=== PATIENT | male | born 1955 ===

== ENCOUNTER 2020-06-28 12:59 | Emergency (ER) | payer MEDICARE, OTHER, SELFPAY ==
[2020-06-28 13:30] VITALS: BP 124/77; PULSE 76; RESP 20; TEMP 36.6; O2SAT 98
[2020-06-28] MEDS: LIDOCAINE HCL 1% LOCAL INJ 20 ML VIAL 5 ML INFILTRATE (14:18)
--- NOTE | 2020-06-28 15:05 | ED.UPPEXIN ---
HPI - Extremity Injury (Upper) General Chief Complaint: Extremity Injury, Upper Stated Complaint: swollen finger Time Seen by Provider: 06/28/20 13:40 Source: patient Mode of arrival: ambulatory Limitations: no limitations History of Present Illness HPI narrative: Patient comes in with what appears to be a Felon of the right 3rd finger on the lateral aspect. He has a small amount of pus coming from this. Finger appears to be quite tender to touch. Pain has been sharp, moderately severe, ongoing for the past several days, not improving. Nothing has helped at home. Other injuries: none Relieving factors: none Exacerbating factors: movement of extremity Related Data Home Medications Medication Instructions Recorded Confirmed esomeprazole magnesium 40 mg PO DAILY 06/28/20 06/28/20 [id number] 1 ea INHALATION DAILY 06/28/20 06/28/20 [Trelegy Ellipta] Allergies Allergy/AdvReac Type Severity Reaction Status Date / Time No Known Allergies Allergy Verified 06/13/19 08:18 Review of Systems Constitutional: Constitutional: Reports no additional constitutional complaints Eyes: Eyes: Reports no additional eye complaints ENT: Reports system reviewed and no additional complaints, except as documented Cardiovascular: Cardiovascular: Reports no additional cardiovascular complaints Respiratory: Respiratory: Reports no additional respiratory complaints Gastrointestinal: Gastrointestinal: Reports no additional gastrointestinal complaints Genitourinary: Genitourinary: Reports no additional male genitourinary complaints Musculoskeletal: Musculoskeletal: Reports no additional musculoskeletal complaints Integumentary/Breasts: Skin/Breast: Reports system reviewed and no additional complaints, except as docu Neurologic: Reports system reviewed and no additional complaints, except as documented Psychiatric: Psychiatric: Reports no additional psychiatric complaints Endocrine: Endocrine: Reports no additional endocrine complaints Hematologic/Lymphatic: Hematologic/Lymphatic: Reports no additional hematologic/lymphatic complaints Allergic/Immunologic: Allergic/Immunologic: Reports no additional allergic/immunologic complaints [facility] Past Medical History Medical History COPD (chronic obstructive pulmonary disease) GERD (gastroesophageal reflux disease) Surgical History Surgical History History of cholecystectomy Hx of appendectomy Family History Family History Father Atrial fibrillation Social History Social History (Updated 02/14/21 @ 19:42 by Emiliano Cazares MD) Smoking status: Former smoker Alcohol intake: current Alcohol use details: 2-3 beers a day, on evenings drinking alcohol Exam Const: General: no acute distress Orientation/consciousness: patient oriented x3 HENMT: Head: normal to inspection Face and sinus: normal facial exam Mouth: Yes Normal oral and palatal mucosa present Throat: posterior oropharynx normal Eyes: Conjunctivae: conjunctivae normal Neck: Neck: normal visual inspection and no lymphadenopathy Chest: Chest palpation & inspection: normal inspection of the chest Resp: Auscultation: clear to auscultation bilaterally Cardio: Rate: regular rate Rhythm: regular rhythm GI: GI Palp: Yes Soft to palpation (nontender) Extrem: Other: Felon right 3rd finger, with small amount pus draining. Psych: Appearance: grossly normal Mental Status: mental status grossly normal Course Course Emergency Course: I gave him a digital block with lidocaine 1%, with about 1.5 cc on each side of the digit. Then I removed 1/3 of the nail on the lateral aspect. I had attempted to drain the area, but removed the nail as I felt this was the only way to prevent the abscess from developing again, given the anatomy of the na
[2020-06-28] MEDS: cefTRIAXone 1 GM VIAL IM (15:23)
[2020-06-28 15:30] VITALS: PULSE 70; RESP 15; TEMP 36.6; O2SAT 98
--- NOTE | 2020-06-28 15:30 | PC.NURSE ---
PT REFUSED TO STAY 30 MINUTES POST IM INJECTION STATING I NEED TO GET HOME. EDUCATION PROVIDED.
== END 2020-06-28 15:28 | disposition home or self-care (01) ==
PROVIDERS: Emergency Provider Emergency Medicine; PCP Internal Medicine
DX: L03.011 Cellulitis of right finger (principal)
CPT/HCPCS: 96372; 99283; A9270; J0696

== ENCOUNTER 2020-07-14 08:02 | Outpatient (RCR) | payer MEDICARE, OTHER, SELFPAY ==
--- NOTE | 2020-07-14 09:33 | OTOPEVAL ---
Thank you for referring Brock Guerrero to [facility].? The patient is scheduled to be seen for therapy? ____x/week for ___ weeks. Please review, sign, date and return this plan of care CHELSIE. I agree with and certify that the following plan of care is medically necessary. Referring Physician Date Admitting Provider: Attending Provider: tejas foster Referring Provider: NAKITA Outpatient Evaluation Start: 07/14/20 08:08 Freq: Status: Active Protocol: Document 07/14/20 08:08 KT (Rec: 07/14/20 09:32 [id number] Therapy Assessment Status Assessment Status Assessment Status Evaluation Outpatient Past Medical History Respiratory History Hx Chronic Obstructive Pulmonary Disease Yes (COPD) Gastrointestinal History Hx Appendectomy Yes Hx Cholecystectomy Yes Hx Gastroesophageal Reflux Disease Yes HEENT History Hx Tonsillectomy Yes Evaluation Information Problem Diagnosis Decreased ROM and strength Onset 06/27/20 Cause finger infection Subjective Information Patient reports that his R Query Text:As Reported By Patient/ middle finger became infected Family and he spent 3 days in the hospital. Patient had an outpatient procedure to clean out the nail bed. Patient reports that it is painful to bend and straighten his middle finger. Patient does not have any finger splints or precautions at this time. Patient is retired. Patient goes to see infectious disease doctor this afternoon and then sees the ortho doctor on the . Quick DASH: 34.1% Prior Level of Function Activity Level (Last 3 Months) Hand Dominance Right Activity of Daily Living Ability Independent Indoor/Home Mobility Independent Community Mobility Independent Stairs Ability Independent Functional Cognition (Planning, Shopping Independent , Taking Medications) Cooking Yes Cleaning Yes Laundry Yes Shopping Yes Driving Yes Home Setting Home Type House Living Situation With Spouse Mobility Assistive Devices (Used Last 3 None Months) Pain Assessment Timing of Pain Ass
--- NOTE | 2020-07-29 14:11 | OTOPEVAL ---
Thank you for referring Brock Guerrero to [facility].? The patient is scheduled to be seen for therapy? ____x/week for ___ weeks. Please review, sign, date and return this plan of care CHELSIE. I agree with and certify that the following plan of care is medically necessary. Referring Physician Date Admitting Provider: Attending Provider: tejas foster Referring Provider: ButchOT Outpatient Evaluation Start: 07/14/20 08:08 Freq: Status: Active Protocol: Document 07/29/20 13:09 [facility] (Rec: 07/29/20 14:11 [id number]) Therapy Assessment Status Assessment Status Assessment Status Re-evaluation Outpatient Past Medical History Respiratory History Hx Chronic Obstructive Pulmonary Disease Yes (COPD) Gastrointestinal History Hx Appendectomy Yes Hx Cholecystectomy Yes Hx Gastroesophageal Reflux Disease Yes HEENT History Hx Tonsillectomy Yes Evaluation Information Problem Subjective Information Patient reports that things Query Text:As Reported By Patient/ seem to be going much better Family however his R middle finger continues to be stiff and a little sore with some movements. He feels that he is probably at 65%. Patient reports that he is able to use his R hand to perform all tasks that he needs to. Pain Assessment Timing of Pain Assessment Timing of Pain Assessment Re-assessment Self Report Self Report Pain Level 0 Pain Score Pain Score 0: Self Report Additional Pain Score Comments greatest pain: 1/10 lowest pain: 0/10 Upper Extremity Range of Motion Finger Range of Motion Right Middle Finger MCP Joint Flexion - Active 95 Middle Finger PIP Joint Flexion - Active 90 Middle Finger DIP Joint Flexion - Active 60 Middle Finger DIP Joint Extension - -5 Active Hand Paper Supervisor/Pinch Strength Assessment Hand Right Paper Supervisor Strength (lbs) 70 Sensation Assessment Location Right 2 Point Discrimination Comments mild numbness in R middle finger however reports improvements Extremity Circumference Assessment Circumference Assessment Circumference Comments R middle PIP: 7.5 cm R middle DIP: 7.0 cm General Exercise General Exercises Exercise Description PROM for R middle DIP Query Text:Record Sets, Reps, extension, R middle MCP/PIP/ Resistance, and Position DIP flexion x 10 min AROM for R middle blocking MCP , PIP, and DIP flexion x 10
--- NOTE | 2020-09-08 16:30 | PCOTNOTE ---
Patient is discharged from skilled OT services as of 07/29/20. See last treatment note for patient's skills. MS
== END 2020-07-29 13:28 | disposition home or self-care (01) ==
LOC: CHSOT 08:02
PROVIDERS: PCP Internal Medicine
DX: L08.9 Local infection of the skin and subcutaneous tissue, unspecified (principal)
CPT/HCPCS: 97110; 97140; 97165

== ENCOUNTER 2021-06-01 07:08 | Outpatient (CLI) | payer MEDICARE, SELFPAY ==
--- NOTE | ~2021-06-01 | US_ITS ---
EXAMINATION: US aorta [facility] scr[facility] DATE: 06/01/2021 07:45 INDICATION: Abdominal aortic aneurysm screening with high risk screen including smoking and obesity. TECHNIQUE: Grayscale, color Doppler, and pulsed Doppler images of the aorta and common iliac arteries were obtained. COMPARISON: None. FINDINGS: The proximal to mid aorta is obscured due to patient body habitus and scattered bowel gas. The distal aorta measures 2.3 cm. The right common iliac artery measures 1.4 cm. The left common iliac artery m easures 1.3 cm. IMPRESSION: 1. Normal caliber distal abdominal aorta. Nonvisualized proximal to mid abdominal aorta due to patien t body habitus and shadowing bowel gas. Reviewed, dictated and finalized at location A. MACY LABORATORY TECHNICIAN IMPRESSION: 1. Normal caliber distal abdominal aorta. Nonvisualized proximal to mid abdomin al aorta due to patient body habitus and shadowing bowel gas.
== END 2021-06-01 07:09 | disposition home or self-care (01) ==
LOC: CHSIMG 07:11
PROVIDERS: PCP Internal Medicine; Visit Provider Internal Medicine
DX: Z13.89 Encounter for screening for other disorder (principal); F17.210 Nicotine dependence, cigarettes, uncomplicated
CPT/HCPCS: 76706

== ENCOUNTER 2021-12-07 07:48 | Outpatient (CLI) | payer MEDICARE, SELFPAY ==
--- NOTE | ~2021-12-07 | US_ITS ---
EXAMINATION: US aorta DATE: 12/07/2021 08:31 INDICATION: Abdominal aortic aneurysm screening, history of obesity and prior tobacco use TECHNIQUE: Grayscale, color Doppler, and pulsed Doppler images of the aorta and common iliac arteries were obtained. COMPARISON: 06/01/2021 FINDINGS: Maximum vascular dimensions are as follows: Proximal aorta: 1.9 cm Mid aorta: 2.0 cm Distal aorta: 1.6 cm Right common iliac artery: 1.0 cm Left common iliac artery: 1.3 cm There is no evidence of abdominal aortic aneurysm. IMPRESSION: 1. No sonographic evidence of abdominal aortic aneurysm. Reviewed, dictated and finalized at location B.
== END 2021-12-07 07:49 | disposition home or self-care (01) ==
LOC: CHSIMG 07:50
PROVIDERS: PCP Internal Medicine; Visit Provider Internal Medicine
DX: I71.4 Abdominal aortic aneurysm, without rupture (principal)
CPT/HCPCS: 76775

== ENCOUNTER 2022-04-19 09:32 | Outpatient (CLI) | payer MEDICARE, SELFPAY ==
[2022-04-19 09:53] LABS: Add Urine Microscopic? NO; Appearance Urine Clear (Clear); Basophils Absolute Auto 0.07 K/mm3 (0.00-0.10); Basophils Percent Auto 0.9 % (0.0-1.0); Bilirubin Urine Negative (Negative); Blood Urine Negative (Negative); Color Urine Yellow (Yellow); Eosinophils Absolute Auto 0.34 K/mm3 (0.02-0.50); Eosinophils Percent Auto 4.6 % (1.0-6.0); Glucose Urine UA Negative (Negative); Hematocrit 41.3 % (37.0-46.0); Hemoglobin 13.3 g/dL (12.4-15.3); Immature Granulocyte Absolute 0.02 K/mm3 (0.00-0.00); Immature Granulocyte Percent A 0.3 % (0.0-0.0); Ketones Urine Negative (Negative); Leukocyte Esterase Ur Negative LEU/UL (Negative); Lymphocytes Absolute Auto 2.51 K/mm3 (1.10-4.50); Lymphocytes Percent Auto 33.9 % (18.0-42.0); Mean Corpuscular HGB Conc 32.2 g/dL (32.0-36.0); Mean Corpuscular Hemoglobin 27.9 pg (27.0-31.0); Mean Corpuscular Volume 86.8 fL (78.0-102.0); Mean Platelet Volume 9.9 fl (8.7-11.0); Monocytes Percent Auto 9.4 % (2.0-11.0); Neutrophils Absolute Auto 3.8 K/mm3 (1.7-7.2); Neutrophils Percent Auto 50.9 % (50.0-70.0); Nitrate Urine Negative (Negative); Platelet Count Result 235 K/mm3 (150-420); Protein Urine Negative (Negative); Red Blood Count 4.76 M/mm3 (4.70-6.10); Red Cell Distribution Width 14.2 % (11.6-14.4); Urobilinogen Urine 0.2 mg/dL (0.2-1.0); White Blood Count 7.4 K/mm3 (4.8-10.8)
[2022-04-19 10:45] LABS: Alanine Aminotransferase 22 U/L (16-63); Albumin Level 3.4 g/dL (3.4-5.0); Alkaline Phosphatase 59 U/L (46-116); Anion Gap 8 mmol/L (8-16); Aspartate Amino Transferase 19 U/L (15-37); Bilirubin,Total 0.4 mg/dL (0.00-1.00); Blood Urea Nitrogen 9 mg/dL (7-18); Calcium 8.6 mg/dL (8.5-10.1); Carbon Dioxide 27 mmol/L (21-32); Chloride 107 mmol/L (98-108); Cholesterol 156 mg/dL (0-200); Estimated Glomerular Filt Rate > 60; Glucose 108 mg/dL (70-99); HDL Direct 47 mg/dL (40-60); LDL Cholesterol Calculated 83 mg/dL (<130); Osmolality Calculated 293 mOsm/kg (285-295); Potassium 4.4 mmol/L (3.5-5.1); Prostate Specific Antigen 1.3 ng/mL (< OR = 4.0); Sodium 142 mmol/L (136-145); Triglycerides 131 mg/dL (0-150)
[2022-04-19 15:29] LABS: Hemoglobin A1C 5.3 % (<5.7)
== END 2022-04-19 09:33 | disposition home or self-care (01) ==
LOC: CHSLAB 09:35
PROVIDERS: PCP Internal Medicine; Visit Provider Internal Medicine
DX: E78.2 Mixed hyperlipidemia (principal); N39.0 Urinary tract infection, site not specified; Z12.5 Encounter for screening for malignant neoplasm of prostate; Z00.00 Encounter for general adult medical examination without abnormal findings; R73.01 Impaired fasting glucose
CPT/HCPCS: 36415; 80053; 80061; 81003; 83036; 84153; 85025; G0103

== ENCOUNTER 2022-08-10 17:39 | Outpatient (CLI) | payer MEDICARE, SELFPAY ==
--- NOTE | ~2022-08-10 | XR_ITS ---
EXAMINATION: XR knee RT 3V DATE: 08/10/2022 18:53 INDICATION: Right posterior knee pain TECHNIQUE: Three views of the right knee were obtained. COMPARISON: 04/03/2013 FINDINGS: Alignment is normal. No fracture or osteochondral lesion. There is mild to moderate tricomp artmental osteoarthritis of the knee. No joint effusion/synovitis. Soft tissues are unremarkable. IMPRESSION: 1. Mild to moderate tricompartmental osteoarthritis of the knee. Reviewed, dictated and finalized at location F.
== END 2022-08-10 17:40 | disposition home or self-care (01) ==
PROVIDERS: PCP Internal Medicine; Visit Provider Internal Medicine
DX: M25.561 Pain in right knee (principal); M17.11 Unilateral primary osteoarthritis, right knee
CPT/HCPCS: 73562

== ENCOUNTER 2022-08-20 06:45 | Outpatient (CLI) | payer MEDICARE, SELFPAY ==
--- NOTE | ~2022-08-20 | MR_ITS ---
EXAMINATION: MR knee RT wo con DATE: 08/20/2022 07:57 INDICATION: Right knee pain x10 days. No known injury. TECHNIQUE: Magnetic resonance imaging (MRI) of the right knee knee was performed without intravenous contrast. Sequences included axial PD-weighted FS FSE, coronal PD-weighted FSE and PD-weighted FS FSE , sagittal PD-weighted FSE, and sagittal T2-weighted FS FSE. COMPARISON: X-ray right knee 08/10/2022. FINDINGS: Medial compartment: Significantly decreased meniscal volume. Oblique undersurface tear at the meniscal body. Apical tears of the posterior horn. Moderate diffuse cartilage thinning. Mild osteophytosis. Lateral compartment: Bucket-handle type tear of the lateral meniscus with displacement of the flap into the intercondylar notch. Moderate diffuse cartilage thinning. Mild osteophytosis. Patellofemoral compartment: 8 mm full-thickness cartilage defect along the lateral facet. Diffuse moderate cartilage thinning. Re tinacula intact. Ligaments and tendons: Complete ACL tear. Intact MCL, PCL, and LCL. The remaining flexor and extensor tendons are intact. Fluid: Small volume joint fluid. Osseous/other: No suspicious focal marrow signal IMPRESSION: 1. Apical posterior horn and oblique undersurface tears of the body of the medial meniscus, with pres umed changes of partial meniscectomy. 2. Bucket-handle tear of the lateral meniscus. 3. Complete ACL tear. 4. Moderate tricompartmental osteoarthritic change. Reviewed, dictated and finalized at location K. IMPRESSION: 1. Apical posterior horn and oblique undersurface tears of the body of the medi al meniscus, with presumed changes of partial meniscectomy. 2. Bucket-handle tear of the lateral meniscus. 3. Complete ACL tear. 4. Moderate tricompartmental osteoarthritic change.
== END 2022-08-20 06:46 | disposition home or self-care (01) ==
LOC: CHSIMG 06:46
PROVIDERS: PCP Internal Medicine; Visit Provider Internal Medicine
DX: M25.561 Pain in right knee (principal); S83.241A Other tear of medial meniscus, current injury, right knee, initial encounter; S83.251A Bucket-handle tear of lateral meniscus, current injury, right knee, initial encounter; S83.501A Sprain of unspecified cruciate ligament of right knee, initial encounter; M17.11 Unilateral primary osteoarthritis, right knee
CPT/HCPCS: 73721

== ENCOUNTER 2023-05-15 10:05 | Outpatient (CLI) | payer MEDICARE, SELFPAY ==
[2023-05-15 10:22] LABS: Appearance Urine Clear (Clear); Bilirubin Urine Negative (Negative); Blood Urine Negative (Negative); Color Urine Light Yellow (Yellow); Glucose Urine UA Negative (Negative); Ketones Urine Negative (Negative); Leukocyte Esterase Ur Negative LEU/UL (Negative); Nitrate Urine Negative (Negative); Protein Urine Negative (Negative); Specific Grav Ur 1.015 (1.010-1.020); Urobilinogen Urine 0.2 mg/dL (0.2-1.0)
[2023-05-15 10:23] LABS: Basophils Absolute Auto 0.07 K/mm3 (0.00-0.10); Basophils Percent Auto 0.9 % (0.0-1.0); Eosinophils Percent Auto 5.3 % (1.0-6.0); Hematocrit 37.7 % (37.0-46.0); Hemoglobin 11.8 g/dL (12.4-15.3); Immature Granulocyte Absolute 0.04 K/mm3 (0.00-0.00); Immature Granulocyte Percent A 0.5 % (0.0-0.0); Lymphocytes Absolute Auto 2.43 K/mm3 (1.10-4.50); Lymphocytes Percent Auto 32.1 % (18.0-42.0); Mean Corpuscular HGB Conc 31.3 g/dL (32.0-36.0); Mean Corpuscular Hemoglobin 26.5 pg (27.0-31.0); Mean Corpuscular Volume 84.7 fL (78.0-102.0); Mean Platelet Volume 9.9 fl (8.7-11.0); Monocytes Absolute Auto 0.78 K/mm3 (0.10-0.90); Monocytes Percent Auto 10.3 % (2.0-11.0); Neutrophils Absolute Auto 3.9 K/mm3 (1.7-7.2); Neutrophils Percent Auto 50.9 % (50.0-70.0); Platelet Count Result 251 K/mm3 (150-420); Red Blood Count 4.45 M/mm3 (4.70-6.10); Red Cell Distribution Width 15.4 % (11.6-14.4); White Blood Count 7.6 K/mm3 (4.8-10.8)
[2023-05-15 10:25] LABS: Add Urine Microscopic? NO
[2023-05-15 11:25] LABS: Alanine Aminotransferase 26 U/L (16-63); Albumin Level 3.3 g/dL (3.4-5.0); Alkaline Phosphatase 47 U/L (46-116); Anion Gap 4 mmol/L (8-16); Aspartate Amino Transferase 15 U/L (15-37); Bilirubin,Total 0.3 mg/dL (0.00-1.00); Blood Urea Nitrogen 11 mg/dL (7-18); Calcium 8.8 mg/dL (8.5-10.1); Carbon Dioxide 33 mmol/L (21-32); Chloride 105 mmol/L (98-108); Cholesterol 153 mg/dL (0-200); Estimated Glomerular Filt Rate > 60; Glucose 98 mg/dL (70-99); HDL Direct 49 mg/dL (40-60); LDL Cholesterol Calculated 76 mg/dL (<130); Osmolality Calculated 293 mOsm/kg (285-295); Potassium 4.3 mmol/L (3.5-5.1); Prostate Specific Antigen 0.5 ng/mL (< OR = 4.0); Sodium 142 mmol/L (136-145); Total Protein 6.7 g/dL (6.4-8.2); Triglycerides 142 mg/dL (0-150)
== END 2023-05-15 10:06 | disposition home or self-care (01) ==
LOC: CHSLAB 10:08
PROVIDERS: PCP Internal Medicine; Visit Provider Internal Medicine
DX: Z12.5 Encounter for screening for malignant neoplasm of prostate (principal); N39.0 Urinary tract infection, site not specified; E78.2 Mixed hyperlipidemia
CPT/HCPCS: 36415; 80053; 80061; 81003; 84153; 85025; G0103

== ENCOUNTER 2023-05-23 12:00 | Outpatient (CLI) | payer MEDICARE, SELFPAY ==
--- NOTE | ~2023-05-23 | XR_ITS ---
EXAMINATION: XR chest 2V DATE: 05/23/2023 12:14 INDICATION: Cough and fever. TECHNIQUE: Frontal and lateral views of the chest were obtained. COMPARISON: Chest 2 views 01/28/2018 FINDINGS: There is no pneumonia, pleural effusion, or pneumothorax. The heart size is normal. There i s mild chronic anterior wedging of multiple thoracic vertebral bodies. There are surgical clips in th e abdomen. IMPRESSION: 1. No acute cardiopulmonary disease. Reviewed, dictated and finalized at location A. GE MANAGEMENT DIRECTOR
== END 2023-05-23 12:01 | disposition home or self-care (01) ==
LOC: CHSIMG 12:02
PROVIDERS: PCP Internal Medicine; Visit Provider Internal Medicine
DX: R05.9 Cough, unspecified (principal); J44.9 Chronic obstructive pulmonary disease, unspecified
CPT/HCPCS: 71046

== ENCOUNTER 2024-05-21 15:33 | Outpatient (CLI) | payer MEDICARE, SELFPAY ==
--- NOTE | ~2024-05-21 | XR_ITS ---
EXAMINATION: XR chest 2V 05/21/2024 15:53 INDICATION: COPD exacerbation PROCEDURE: 2 view chest COMPARISON: 05/23/2023 FINDINGS: The lungs are clear. The lungs are hyperinflated which is consistent with, but not diagnost ic of chronic obstructive pulmonary disease. The cardiomediastinal silhouette is within normal limits . There are no pleural effusions. There is no pneumothorax suspected. IMPRESSION: 1: NO ACUTE CARDIOPULMONARY DISEASE. Reviewed, dictated and finalized at location B. ICAPPED TEACHER
== END 2024-05-21 15:34 | disposition home or self-care (01) ==
LOC: CHSIMG 15:35
PROVIDERS: PCP Internal Medicine; Visit Provider Internal Medicine
DX: J44.1 Chronic obstructive pulmonary disease with (acute) exacerbation (principal)
CPT/HCPCS: 71046

== ENCOUNTER 2024-05-28 07:04 | Outpatient (CLI) | payer MEDICARE, SELFPAY ==
[2024-05-28 07:20] LABS: Add Urine Microscopic? NO; Appearance Urine Clear (Clear); Basophils Absolute Auto 0.07 K/mm3 (0.00-0.10); Basophils Percent Auto 0.5 % (0.0-1.0); Bilirubin Urine Negative (Negative); Blood Urine Negative (Negative); Color Urine Light Yellow (Yellow); Eosinophils Absolute Auto 0.12 K/mm3 (0.02-0.50); Eosinophils Percent Auto 0.9 % (1.0-6.0); Glucose Urine UA Negative (Negative); Hematocrit 40.3 % (37.0-46.0); Hemoglobin 12.6 g/dL (12.4-15.3); Immature Granulocyte Absolute 0.05 K/mm3 (0.00-0.00); Immature Granulocyte Percent A 0.4 % (0.0-0.0); Ketones Urine Negative (Negative); Leukocyte Esterase Ur Negative LEU/UL (Negative); Lymphocytes Absolute Auto 4.85 K/mm3 (1.10-4.50); Lymphocytes Percent Auto 36.7 % (18.0-42.0); Mean Corpuscular HGB Conc 31.3 g/dL (32-36); Mean Corpuscular Hemoglobin 26.2 pg (27.0-31.0); Mean Corpuscular Volume 83.8 fL (78.0-102.0); Mean Platelet Volume 10.1 fl (8.7-11.0); Monocytes Absolute Auto 1.24 K/mm3 (0.10-0.90); Monocytes Percent Auto 9.4 % (2.0-11.0); Neutrophils Absolute Auto 6.88 K/mm3 (1.70-7.20); Neutrophils Percent Auto 52.1 % (50.0-70.0); Nitrate Urine Negative (Negative); Platelet Count Result 244 K/mm3 (150-420); Protein Urine Negative (Negative); Red Blood Count 4.81 M/mm3 (4.70-6.10); Red Cell Distribution Width 14.9 % (11.6-14.4); Specific Grav Ur >= 1.030 (1.010-1.020); Urobilinogen Urine 0.2 mg/dL (0.2-1.0); White Blood Count 13.2 K/mm3 (4.8-10.8)
[2024-05-28 08:18] LABS: Alanine Aminotransferase 33 U/L (16-63); Alkaline Phosphatase 48 U/L (46-116); Anion Gap 9 mmol/L (4-12); Aspartate Amino Transferase 13 U/L (15-37); Bilirubin,Total 0.3 mg/dL (0.00-1.00); Blood Urea Nitrogen 14 mg/dL (7-18); Calcium 8.3 mg/dL (8.5-10.1); Carbon Dioxide 27 mmol/L (21-32); Chloride 106 mmol/L (98-108); Cholesterol 124 mg/dL (0-200); Estimated Glomerular Filt Rate > 60; Glucose 82 mg/dL (70-99); HDL Direct 59 mg/dL (40-60); LDL Cholesterol Calculated 30 mg/dL (<130); Osmolality Calculated 293 mOsm/kg (285-295); Potassium 4.1 mmol/L (3.5-5.1); Prostate Specific Antigen 0.6 ng/mL (< OR = 4.0); Sodium 142 mmol/L (136-145); Total Protein 6.1 g/dL (6.4-8.2); Triglycerides 174 mg/dL (0-150)
== END 2024-05-28 07:05 | disposition home or self-care (01) ==
LOC: CHSLAB 07:06
PROVIDERS: PCP Internal Medicine; Visit Provider Internal Medicine
DX: E78.2 Mixed hyperlipidemia (principal); J44.1 Chronic obstructive pulmonary disease with (acute) exacerbation; Z12.5 Encounter for screening for malignant neoplasm of prostate; N39.0 Urinary tract infection, site not specified
CPT/HCPCS: 36415; 80053; 80061; 81003; 84153; 85025; G0103

== ENCOUNTER 2024-06-13 14:12 | Outpatient (CLI) | payer MEDICARE, SELFPAY ==
--- NOTE | ~2024-06-13 | XR_ITS ---
CHEST RADIOGRAPH, PA AND LATERAL CLINICAL HISTORY: SOB,COUGH,X5DAYS,COPD . COMPARISON: 05/21/2024 TECHNIQUE: PA and lateral views of the chest. FINDINGS The cardiomediastinal silhouette is unremarkable. The lungs are clear. Visualized osseous structures and soft tissues are unremarkable. IMPRESSION: No focal infiltrate or effusion. If clinical suspicion persists, cross-sectional imaging (noncontrast enhanced CT examination of the c hest) is recommended for further evaluation. Reviewed, dictated and finalized at location A. OLEUM INSPECTOR SUPERVISOR IMPRESSION: No focal infiltrate or effusion. If clinical suspicion persists, cross-sectional imaging (noncontrast enhanced C T examination of the chest) is recommended for further evaluation.
[2024-06-13 14:32] LABS: Hematocrit 44.5 % (37.0-46.0); Hemoglobin 13.6 g/dL (12.4-15.3); Mean Corpuscular HGB Conc 30.6 g/dL (32-36); Mean Corpuscular Hemoglobin 26.1 pg (27.0-31.0); Mean Corpuscular Volume 85.2 fL (78.0-102.0); Mean Platelet Volume 10.6 fl (8.7-11.0); Platelet Count Result 195 K/mm3 (150-420); Red Blood Count 5.22 M/mm3 (4.70-6.10); Red Cell Distribution Width 15.8 % (11.6-14.4); White Blood Count 6.5 K/mm3 (4.8-10.8)
--- OUTSIDE RECORDS SUMMARY | 2024-06-13 14:51 | XMS_ITS | Continuity of Care Document ---
Author Organization [facility] Address [id number] [place] [address] [place] [address] Phone Care Team Providers Care Aboriginal Education Worker Coordinator Name Role Phone Preston Hunt DO Unavailable Unavailable Advance Directives Directive Yes / No Effective Date File Name No Information Encounters Encounter Description Practice Location Reason(s) For Visit Diagnoses Date Provider Providers Copied on Encounter [facility], [address], [place], [place], [id number], tel:[phone] [facility] No Information Gilbert Jaramillo. [address] [place], [address], [place]. tel: [phone] Family History Family Member Type Diagnosis Age At Onset No Information Payers Payer name Insurance type Covered democrat ID Authoriza tion(s) No Information Social History Type Description Quantity Date Captured Comments Sex Male Smoking Status No Information Chief Complaint And Reason For Visit No Information Reason For Referral Reason For Referral No Information History Of Present Illness Encounter Date Complaint History Of Prese nt Illness No Information Functional Status Date Functional Assessmen t No Information Instructions Date Instruction Additional Infor mation No Information Assessments Type Assessment Date No Information Patient Care Teams Name Effective Dates (start - stop) Status Members No Information
--- OUTSIDE RECORDS SUMMARY | 2024-06-13 14:51 | XMS_ITS | Clinical Summary ---
Author Organization [facility] Address [address] [place] [address]. [place], [place] [address] [place] [address] Care Team Providers Care Methods Analyst Name Role Phone Cydney Keating MD Primary Care Provider [phone] Social History Tobacco Use Types Packs/Day Years Used Date Smoking Tobacco: Never Assessed Sex and Gender Information Value Date Recorded Sex Assigned at Not on file Legal Sex Male 8:59 PM CDT Gender Identity Not on file Sexual Orientation Not on file Last Filed Vital Signs Vital Sign Reading Time Taken Comments Blood Pressure 118/64 01/19/2016 10:20 AM CDT Pulse 52 01/19/2016 10:20 AM CDT Temperature - - Respiratory Rate - - Oxygen Saturation - - Inhaled Oxygen Concentration - - Weight 118.8 kg (262 lb) 01/19/2016 10:20 AM CDT Height 177.8 cm (5' 10 ) 01/19/2016 10:20 AM CDT Body Mass Index 37.59 01/19/2016 10:20 AM CDT Plan of Treatment Health Maintenance Due Date Last Done Comments Colorectal Cancer Screening Colonoscopy (10 Years) 1954 Hepatitis C 1972 Zoster Vaccines (1 of 2) 2004 RSV Immunization or 60+ Years (1 - Risk 60-74 years 1-dose series) 2014 Annual Medicare Wellness Visit 2019 DTaP, Tdap and Td Vaccines (2 - Td or Tdap) 03/27/2020 03/27/2010 COVID-19 Vaccine ( - season) 2024 05/11/2021, 08/28/2020, 07/31/2020 Influenza Adult (#1) 2024 02/28/2019, 04/17/2018, 03/31/2017, Additional history exists Pneumococcal Vaccine: 65+ Years Completed 05/25/2021, 07/15/2019, 1955 Meningococcal B Vaccine Aged Out No l onger eligible based on patient's age to complete this topic Meningococcal Vaccine Aged Out No kathy alex eligible based on patient's age to complete this topic RSV Immunizations Under 20 Months Aged Out No longer eligible based on patient's age to complete this topic Insurance [employer] Care Teams Methods Analyst Relationship Specialty Start Date End Date Cydney Keating MD [address] [place] [id number] PCP - General INTERNAL MEDICINE 09/16/21
--- OUTSIDE RECORDS SUMMARY | 2024-06-13 14:51 | XMS_ITS | Patient Health Summary ---
Author Organization [facility] Address [address] [place] [address] Care Team Providers Care Oxygen Tank Filler Name Role Phone Cydney Keating MD Primary Care Provider [phone] Note from [facility],non-owned Affiliates and Associated Physician Practices is amultiple site organization consisting of ambulatory clinics and hospital sitesin [place], [place], [place] and [place]. This disclosure is being madepursuant to the Care Everywhere program and may not contain all information available regarding this patient. Last updated 18.[facility] Allergies No known active allergies Medications * Be aware that medications may not be up to date on this document. Alwaysverify current medications with the patient. * esomeprazole (NexIUM) 40 MG capsule(Started 06/17/2022) * triamcinolone acetonide (Kenalog) 0.1 % cream(Started 06/17/2022) * fluticasone-vilanterol (Breo Ellipta) 100-25 MCG/ACT inhaler Inhale 1 (one) puff by mouth once daily * methylPREDNISolone (Medrol Dosepak) 4 MG tablet(Started 08/10/2022) * meloxicam (Mobic) 15 MG tablet(Started 10/20/2022) Take 1 (one) tablet by mouth once daily 5 refills by 10/20/2023 Active Problems No known active problems Social History Tobacco Use Types Packs/Day Years Used Date Smoking Tobacco: Never Smokeless Tobacco: Never Tobacco Cessation:Counseling Given: Not Answered Sex and Gender Information Value Date Recorded Sex Assigned at Not on file Gender Identity Not on file Sexual Orientation Not on file Last Filed Vital Signs Vital Sign Reading Time Taken Comments Blood Pressure - - Pulse - - Temperature - - Respiratory Rate - - Oxygen Saturation - - Inhaled Oxygen Concentration - - Weight 104.3 kg (230 lb) 10/20/2022 2:37 PM CDT Height 177.8 cm (5' 10 ) 10/20/2022 2:37 PM CDT Body Mass Index 33 10/20/2022 2:37 PM CDT Procedures * XR KNEE BILAT 2VW OR LESS(Performed 10/20/2022) Performed for Chronic pain of right knee Results * XR KNEE BILAT ONE OR TWO VIEWS (10/20/2022 3:06 PM CDT) Anatomical Region Laterality Modality Lower Extremity Computed Radiogr aphy Narrative 10/20/2022 3:07 PM CDT Tonya Marcus, RT(R) ? 11/04/2022 ??2:00 PM See progress notes for results Lui Crump MD [facility] Care Teams Oxygen Tank Filler Relationship Specialty Start Date End Date Cydney Keating MD [address] [place] [address] PCP - General Internal Medicine 10/19/22
--- OUTSIDE RECORDS SUMMARY | 2024-06-13 14:51 | XMS_ITS | Clinical Summary ---
Author Organization [facility] [employer] Address [address] [place] [address] Care Team Providers Care Lacquer Spray Booth Operator Name Role Phone Cydney Keating MD Primary Care Provider [phone] Source Comments [facility] [employer],non-owned Affiliates and Associated Physician Practices is amultiple site organization consisting of ambulatory clinics and hospital sitesin [place], [place], [place] and [place]. This disclosure is being madepursuant to the Care Everywhere program and may not contain all information available regarding this patient. Last updated 18.[facility] [employer] Allergies No known active allergies Medications * Be aware that medications may not be up to date on this document. Alwaysverify current medications with the patient. Medication Sig Dispensed Refills Start Date End Date Status esomeprazole (NexIUM) 40 MG capsule 06/17/2022 Active triamcinolone acetonide (Kenalog) 0.1 % cream 06/17/2022 Active fluticasone-vilantero l (Breo Ellipta) 100-25 MCG/ACT inhaler Inhale 1 (one) puff by mouth once daily Active methylPREDNISolone (Medrol Dosepak) 4 MG tablet 08/10/2022 Active meloxicam (Mobic) 15 MG tablet Take 1 (one) tablet by mouth once daily 30 tablet 5 10/20/2022 Active Active Problems No known active problems Social [...] Mass Index 33 10/20/2022 2:37 PM CDT Plan of Treatment Health Maintenance Due Date Last Done Comments COLOGUARD (AGES 45-75) - COL ON CA SCREENING 1954 COLON MONITORING 1954 COLONOSCOPY - COLON CA SCREENING 1954 CT COLONOGRAPHY - COLON CA SCREENING 1954 Colorectal Cancer Screening 1954 FIT - COLON CA SCREENING 1954 FLEX SIG - COLON CA SCREENING 1954 LIPID TESTING 1954 HEPATITIS C SCREENING 05/29/1972 DTAP/TDAP/TD VACCINES (1 - Tdap) 1973 PNEUMOCOCCAL VACCINE 50+ (1 of 1 - PCV) 2004 ZOSTER VACCINE (1 of 2) 2004 SCREENING FOR DIABETES 10/20/2022 COVID-19 VACCINE (1 - 2023-2 5 season) 2024 INFLUENZA VACCINE (#1) 2024 03/27/2010 DEPRESSION SCREENING 05/15/2024 MEDICARE AWV ? CALENDAR YEAR 2024 Respiratory Syncytial Virus (RSV) Vaccine Pt: or over 60 yrs (1 - 1-dose 75+ series) 2029 HEPATITIS B VACCINE Aged Out No longe r eligible based on patient's age to complete this topic HIB VACCINE Aged Out No longer eligi ble based on patient's age to complete this topic HPV VACCINE Aged Out No longer eligi ble based on patient's age to complete this topic MENINGOCOCCAL (Group B) VACCINE Aged Out No longer eligible based on patient's age to complete this topic MENINGOCOCCAL VACCINE Aged Out No kathy alex eligible based on patient's age to complete this topic Care Teams Lacquer Spray Booth Operator Relationship Specialty Start Date End Date Cydney Keating MD [address] [place] [phone] PCP - General Internal Medicine 10/19/22
--- OUTSIDE RECORDS SUMMARY | 2024-06-13 14:52 | XMS_ITS | Referral Summary ---
Author Organization [facility] [employer] Address [address] [place] [address] Care Team Providers Care Farm Service Consultant Name Role Phone Cydney Keating MD Primary Care Provider [phone] Source Comments [facility] [employer],non-owned Affiliates and Associated Physician Practices is amultiple site organization consisting of ambulatory clinics and hospital sitesin [place], [place], [place] and [place]. This disclosure is being madepursuant to the Care Everywhere program and may not contain all information available regarding this patient. Last updated 18.[facility] [employer] Allergies No known active allergies Medications [...] 10/20/2022 2:37 PM CDT Plan of Treatment Not on file Care Teams Farm Service Consultant Relationship Specialty Start Date End Date Cydney Keating MD [address] [place] [phone] PCP - General Internal Medicine 10/19/22
--- OUTSIDE RECORDS SUMMARY | 2024-06-13 14:52 | XMS_ITS | Referral Summary ---
Author Organization [facility] Address [address] [place] [address] Care Team Providers Care Oil Changer Name Role Phone Cydney Keating MD Primary Care Provider + [phone] Allergies No known active allergies Medications omeprazole (PriLOSEC) 40 mg capsule Take 1 capsule (40 mg total) by mouth daily Active ipratropium-albute roL (COMBIVENT RESPIMAT) 20-100 mcg/actuation inhalerIndications :Chronic Obstructive Pulmonary Disease with Bronchospasms Inhale 1 puff as needed for wheezing Active fluticasone/umecli din/vilanter (TRELEGY ELLIPTA INHAL) Inhale Active multivit-min/romero us fumarate (MULTI VITAMIN ORAL) Take by mouth Ac tive cyanocobalamin (Vitamin B-12) 1,000 mcg sublingual tablet Take 1 tablet (1,000 mcg total) by mouth daily Active ascorbic acid (vitamin C) 100 mg tablet Take 1 tablet (100 mg total) by mouth daily Active Active Problems Problem Noted Date Diagnosed Date Encounter for screening colonoscopy 07/06/2021 Overview (07/06/2021): Added automatically from request for surgery [id number] Abnormal glucose tolerance test (GTT) 09/28/2013 Overview (08/19/2016): IMPAIRED ORAL GLUCSE CONNOR Dysphagia 09/28/2013 Overview (08/19/2016): DYSPHAGIA NOS Chronic obstructive pulmonary disease 09/28/2013 Overview (08/19/2016): CHR AIRWAY OBSTRUCT NEC Gastroesophageal reflux disease with esophagitis 09/28/2013 Overview (08/19/2016): REFLUX ESOPHAGITIS Immunizations Name Administration Dates Next Due Influenza, Split 03/27/2010 Tdap 03/27/2010 Social History Tobacco Use Types Packs/Day Years Used Date Smoking Tobacco: Former Cigarettes Q uit: 2004 Tobacco Cessation:Counseling Given: Not Answered Alcohol Use Standard Drinks/Week Comments Yes 0 (1 standard drink = 0.6 oz pur e alcohol) AUDIT-C Answer Date Recorded Q1: How often do you have a drink containing alc ohol? 2-4 times a month 04/14/2023 Q2: How many drinks containi ng alcohol do you have on a typical day when you are drinking? 1 or 2 04/14/2023 Q3: How often do you have si x or more drinks on one occasion? Never 04/14/2023 Personal Safety Answer Date Recorded Have you ever been in or are you currently in a harmful physical or emotional relationship or is someone making you feel afraid or unsafe? Denies 04/14/2023 Sex and Gender Information Value Date Recorded Sex Assigned at Not on file Legal Sex Male 12:44 PM PLASTERER MAINTENANCE Gender Identity Not on file Sexual Orientation Not on file Last Filed Vital Signs Vital Sign Reading Time Taken Comments Blood Pressure 120/75 04/14/2023 9:17 AM PLASTERER MAINTENANCE Pulse 53 04/14/2023 9:17 AM PLASTERER MAINTENANCE Temperature 35.8 ??C (96.5 ??F) 04/14/2023 8:57 AM CS T Respiratory Rate 19 04/14/2023 9:17 AM PLASTERER MAINTENANCE Oxygen Saturation 98% 04/14/2023 9:17 AM PLASTERER MAINTENANCE Inhaled Oxygen Concentration - - Weight 106.6 kg (235 lb) 04/14/2023 7:55 AM PLASTERER MAINTENANCE Height 177.8 cm (5' 10 ) 04/14/2023 7:55 AM PLASTERER MAINTENANCE Body Mass Index 33.72 04/14/2023 7:55 AM PLASTERER MAINTENANCE Plan of Treatment Not on file Procedures Procedure Name Priority Date/Time Associated Diagnosis Comments COLONOSCOPY 08/04/2021 9:22 AM CDT from Last 3 Months or Most Recently Relevant to Health Maintenance Results * COLONOSCOPY (08/04/2021 9:22 AM CDT) Anatomical Region Laterality Modality Other Narrative Procedure Note Stephanie Xiong MD - 08/04/2021 9:22 AM CDT [facility] Patient Name: Brock Guerrero Procedure Date: 08/04/2021 9:22 AM Date of : 1955 Admit Type: Outpatient Age: 66 Gender: Male Attending MD: Stephanie Xiong M.D. Room: [facility] RO[facility] 1 Note Status: Finalized Patient Profile: This is a 66 year old male. No family history ofcolon cancer. No specific GI complaint Procedure: Colonoscopy Indications: Screening for colorectal malignant neoplasm, Last colonoscopy: 2011 Referring MD: Cydney Keating MD Providers: Stephanie Xiong M.D. Impression: - One 16 mm polyp in the cecum, removed with a hot snare. Resected and retrieved. Clip (MRconditional) was placed. Clip stave planer tender: ExoYou. - One 5 mm polyp in the rectum, removed with a cold snare. Resected and retrieved. - Internal hemorrhoids. Recommendation: - Repeat colonoscopy in 3 - 5 years for screening purposes. - Await pathology results. - Continue present medications. Medicines: Monitored Anesthesia Care Complications: No immediate complications. Estimated Blood Loss: Estimated blood loss: none. Procedure: Pre-Anesthesia Assessment: - Prior to the procedure, a History and Physicalwas performed, and patient medications and allergieswere reviewed. The patient's tolerance of previous anesthesia was also reviewed. The risks andbenefits of the procedure and the sedation options and risks were discussed with the patient. All questions were answered, and informed consent was obtained. Prior Anticoagulants: The patient has taken noanticoagulant or antiplatelet agents. ASA Grade Assessment: II -A patient with mild systemic disease. After reviewing the risks and benefits, the patient was deemed in satisfactory condition to undergo the procedure. The benefits, risks and alternatives of theprocedure and sedation were discussed and informed consentwas obtained. All questions were answered. Please referto the signed informed consent document in the medical record. The bowel preparation used was Miralax and bisacodyl tablets via split dose instruction. The scope was passed under direct vision. The Pediatric Colonoscope PCF-H190L [id number] was introducedthrough the anus and advanced to the the cecum, identifiedby appendiceal orifice and ileocecal valve. Thequality of the bowel preparation was good. Bowel prep was administered using a split dose. Findings: The perianal and digital rectal examinations were normal. The appendiceal orifice appeared normal. A 16 mm polyp was found in the cecum. The polyp was sessile. Thepolyp was removed with a hot snare. Resection and retrieval were complete.To prevent bleeding after the polypectomy, one hemostatic clip was successfully placed (MR conditional). Clip stave planer tender: ExoYou. There was no bleeding at the end of the procedure. The sigmoid colon, descending colon, transverse colon and ascending colon appeared normal. A 5 mm polyp was found in the rectum. The polyp was sessile. Thepolyp was removed with a cold snare. Resection and retrieval werecomplete. Internal hemorrhoids were found during retroflexion. The hemorrhoids were small. Electronically signed by Ahmad Karadaghy, M.D. Stephanie Xiong M.D. 08/04/2021 11:09:25 AM Number of Addenda: 0 Note Initiated On: 08/04/2021 9:22 AM Procedure Code(s): --- Professional --- 60569, Colonoscopy, flexible; with removal of tumor(s), polyp(s), or other lesion(s) by snare technique Diagnosis Code(s): --- Professional --- Z12.11, Encounter for screening for malignant neoplasm of colon K64.8, Other hemorrhoids D12.0, Benign neoplasm of cecum D12.8, Benign neoplasm of rectum CPT copyright 2020 [employer]. All rights reserved. The codes documented in this report are preliminary and upon ribber reviewmay be revised to meet current compliance requirements. Recognized by the [employer] for promoting quality in endoscopy Stephanie Xiong MD ENDOSCOPY PROCEDURES Final Result from Last 3 Months or Most Recently Relevant to Health Maintenance Insurance T MEDICARE Advance Directives For more information, please contact: [phone] * Full Code (Latest Code Status on File) Date Activated Date Inactivated Comments 04/14/2023 7:38 AM 04/14/2023 1:31 PM * Full Code Date Activated Date Inactivated Comments 03/23/2023 12:30 PM 03/23/2023 7:07 PM * Full Code Date Activated Date Inactivated Comments 03/23/2023 12:30 PM 03/23/2023 12:30 PM * Full Code Date Activated Date Inactivated Comments 08/04/2021 9:20 AM 08/04/2021 4:10 PM Care Teams Oil Changer Relationship Specialty Start Date End Date Cydney Keating MD [address] [place] [address] PCP - General Internal Medicine 03/07/23
--- OUTSIDE RECORDS SUMMARY | 2024-06-13 14:52 | XMS_ITS | Clinical Summary ---
Author Organization [facility] Building [facility] Address [address] [place] [address] Care Team Providers Care Money Room Supervisor Name Role Phone Cydney Keating MD Primary Care Provider + [phone] Allergies No known active allergies Medications omeprazole [...] (07/06/2021): Added automatically from request for surgery [id number] Abnormal glucose tolerance test (GTT) 09/28/2013 Overview (08/19/2016): IMPAIRED ORAL GLUCSE CONNOR Dysphagia 09/28/2013 Overview (08/19/2016): DYSPHAGIA NOS Chronic obstructive pulmonary disease 09/28/2013 Overview (08/19/2016): CHR AIRWAY OBSTRUCT NEC Gastroesophageal reflux disease with esophagitis 09/28/2013 Overview (08/19/2016): REFLUX ESOPHAGITIS Immunizations Name Administration Dates Next Due Influenza, Split 03/27/2010 Tdap 03/27/2010 Surgical History Surgery Date Site/Laterality Comments APPENDECTOMY Appendectomy CHOLECYSTECTOMY Cholecystectomy KNEE ARTHROSCOPY Arthroscopy knee APPENDECTOMY 05/15/1967 - 05/14/1968 Appendectomy CHOLECYSTECTOMY 05/15/2004 - 05/14/2005 Cholecystectomy KNEE ARTHROSCOPY 05/15/2001 - 05/14/2002 Right Arthroscopy knee COLONOSCOPY 10 years ago COLONOSCOPY 08/04/2021 Medical History Medical History Date Comments Hx Other Medical gall bladder palma rgery Hx Other Medical [address] vizcarra GERD (gastroesophageal reflux disease) COPD (chronic obstructive pulmonary disease) (HC C) Family History Medical History Relation Name Comments Atrial fibrillation Father Atrial F ibrillation; Stroke Father Stroke; Other Mother Alive and well; Other Sister 2 Alive and well; Relation Name Status Comments Father Mother Alive Sister 1 Alive Sister 2 Social History Tobacco Use Types Packs/Day Years [...] on file Legal Sex Male 12:44 PM HAT LACER Gender Identity Not on file Sexual Orientation Not on file Obstetrics History Last Filed Vital Signs Vital Sign Reading Time Taken Comments Blood Pressure 120/75 04/14/2023 9:17 AM HAT LACER Pulse 53 04/14/2023 9:17 AM HAT LACER Temperature 35.8 ??C (96.5 ??F) 04/14/2023 8:57 AM CS T Respiratory Rate 19 04/14/2023 9:17 AM HAT LACER Oxygen Saturation 98% 04/14/2023 9:17 AM HAT LACER Inhaled Oxygen Concentration - - Weight 106.6 kg (235 lb) 04/14/2023 7:55 AM HAT LACER Height 177.8 cm (5' 10 ) 04/14/2023 7:55 AM HAT LACER Body Mass Index 33.72 04/14/2023 7:55 AM HAT LACER Plan of Treatment Health Maintenance Due Date Last Done Comments Depression Screening 1955 Hepatitis C Screening 1955 Abdominal Aortic Aneurysm (A AA) Screen 2019 Well Visit 65+ 2019 Covid-19 Vaccine (2023-2 5 season) 2024 05/11/2021, 08/28/2020, 07/31/2020 Influenza Vaccine (#1) 2024 , 03/02/2022, 02/09/2021, Additional history exists Fall Risk Assessment 04/14/2024 04/14/2023 Colon Cancer Screening-Colonoscopy 08/05/20312021 DTaP/Tdap/Td Vaccine (3 - Td or Tdap) 10/27/2031 10/26/2021, 03/27/2010 Pneumococcal vaccine 65+ Completed 05/25/2021, 06/2019 Zoster Vaccine Completed 11/03/2022, 07/21/2022 Procedures Procedure Name Priority Date/Time Associated Diagnosis Comments COLONOSCOPY 08/04/2021 9:22 AM CDT from Last 3 Months or Most Recently Relevant to Health Maintenance Results * COLONOSCOPY (08/04/2021 9:22 AM CDT) Anatomical Region Laterality Modality Other Narrative Procedure Note Stephanie Xiong MD - 08/04/2021 9:22 AM CDT [facility] Patient Name: Brock Guerrero Procedure Date: 08/04/2021 9:22 AM Date of : 1955 Admit Type: Outpatient Age: 66 Gender: Male Attending MD: Stephanie Xiong M.D. Room: [facility] ENDOSCOPY ROOM 1 Note Status: Finalized Patient [...] and retrieved. Clip (MRconditional) was placed. Clip hourly caregiver: Kreyonic. - One 5 mm polyp in the [...] under direct vision. The Pediatric Colonoscope PCF-H190L [id number] was introducedthrough the anus and advanced to [...] clip was successfully placed (MR conditional). Clip hourly caregiver: Kreyonic. There was no bleeding at the end of the procedure. The sigmoid colon, descending colon, transverse colon and ascending colon appeared normal. A 5 mm polyp was found in the rectum. The polyp was sessile. Thepolyp was removed with a cold snare. Resection and retrieval werecomplete. Internal hemorrhoids were found during retroflexion. The hemorrhoids were small. Electronically signed by Stephanie Xiong M.D. Stephanie Xiong M.D. 08/04/2021 11:09:25 AM Number of Addenda: 0 Note Initiated On: 08/04/2021 9:22 AM Procedure Code(s): --- Professional --- 63295, Colonoscopy, flexible; with removal of tumor(s), polyp(s), or other lesion(s) by snare technique Diagnosis Code(s): --- Professional --- Z12.11, Encounter for screening for malignant neoplasm of colon K64.8, Other hemorrhoids D12.0, Benign neoplasm of cecum D12.8, Benign neoplasm of rectum CPT copyright 2020 [employer]. All rights reserved. The codes documented in this report are preliminary and upon farm mortgage agent reviewmay be revised to meet current compliance requirements. Recognized by the [employer] for promoting quality in endoscopy Stephanie Xiong MD ENDOSCOPY PROCEDURES Final Result from Last 3 Months or Most Recently Relevant to Health Maintenance Insurance AETNA MEDICARE AETNA MEDICARE Advance Directives For more information, please contact: [phone] * Full Code (Latest Code Status on File) Date Activated Date Inactivated Comments 04/14/2023 7:38 AM 04/14/2023 1:31 PM * Full Code Date Activated Date Inactivated Comments 03/23/2023 12:30 PM 03/23/2023 7:07 PM * Full Code Date Activated Date Inactivated Comments 03/23/2023 12:30 PM 03/23/2023 12:30 PM * Full Code Date Activated Date Inactivated Comments 08/04/2021 9:20 AM 08/04/2021 4:10 PM Care Teams Money Room Supervisor Relationship Specialty Start Date End Date Cydney Keating MD [address] [place] [address] PCP - General Internal Medicine 03/07/23
[2024-06-13 15:08] LABS: Strep Group A RT-PCR NOT DETECTED (Negative)
[2024-06-13 15:10] LABS: SARS-CoV-2 RNA PCR Negative (Negative)
[2024-06-13 15:21] LABS: Influenza A QL RT-PCR Negative (Negative); Influenza B QL RT-PCR Negative (Negative); RSV RNA, RT-PCR Negative (Negative)
== END 2024-06-13 14:13 | disposition home or self-care (01) ==
LOC: CHSLAB 14:15
PROVIDERS: PCP Internal Medicine; Visit Provider Internal Medicine
DX: J44.1 Chronic obstructive pulmonary disease with (acute) exacerbation (principal)
CPT/HCPCS: 36415; 71046; 85025; 85027; 87637; 87651

== ENCOUNTER 2024-06-17 11:58 | Outpatient (CLI) | payer MEDICARE, SELFPAY ==
--- NOTE | ~2024-06-17 | CT_ITS ---
EXAMINATION: CT diagnostic chest wo con DATE: 06/17/2024 12:15 INDICATION: Cough X 4 Weeks, Abnormal CXR TECHNIQUE: Computed tomography (CT) of the chest was performed without intravenous contrast. Addition al 3D reconstructions utilizing coronal maximum intensity projection (MIP) were performed. Automated exposure control and iterative reconstruction technique were employed. The dose-length product was 43 2.44 mGy-cm. COMPARISON: None FINDINGS: Mild discoid atelectasis at the posterior left lower lobe. There are multiple scattered small calcifi ed and <4 mm noncalcified pulmonary nodules in both lungs along with calcified small calcified bilate ral hilar and mediastinal lymph nodes persist with old granulomatous disease. No pneumonia, pulmonary edema or pleural effusion. Heart size is normal. No pericardial effusion. Thoracic aorta is normal i n caliber. No pathologically enlarged thoracic lymphadenopathy. Cholecystectomy clips at the gallblad viviane fossa. Mild thoracic spondylosis with bridging osteophytes at multiple levels consistent with dif fuse idiopathic skeletal hyperostosis (DISH). IMPRESSION: 1. No acute cardiopulmonary disease. 2. Multiple small calcified and <4 mm noncalcified pulmonary nodules in both lungs likely sequela of old granulomatous disease. If the patient is low risk for lung cancer, no follow-up is needed. If the patient is high risk (i.e., history of smoking or asbestos or significant radiation exposure), optio nal follow-up chest CT could be considered at 12 months. Reviewed, dictated and finalized at location B. [employer] CONSULTANT IMPRESSION: 1. No acute cardiopulmonary disease. 2. Multiple small calcified and <4 mm noncalcified pulmonary nodules in both soham ngs likely sequela of old granulomatous disease. If the patient is low risk for lung cancer, no follow-up is needed. If the patient is high risk (i.e., histor y of smoking or asbestos or significant radiation exposure), optional follow-up chest CT could be considered at 12 months.
[2024-06-17 12:28] LABS: D Dimer 0.34 mg/L (0.19-0.50)
[2024-06-17 12:40] LABS: NT Pro B Type Natriuretic Pept 65 pg/mL (0-125)
--- OUTSIDE RECORDS SUMMARY | 2024-06-17 13:06 | XMS_ITS | Referral Summary ---
Author Organization [facility] Address [address] [place] [address] Care Team Providers Care Explosives Truck Driver Name Role Phone Cydney Keating MD Primary Care Provider [phone] Source Comments [facility],non-owned Affiliates and Associated Physician Practices is amultiple site organization consisting of ambulatory clinics and hospital sitesin [place], [place], [place] and [place]. This disclosure is being madepursuant to the Care Everywhere program and may not contain all information available regarding this patient. Last updated 18.[facility] Allergies No known active allergies Medications * [...] of Treatment Not on file Care Teams Explosives Truck Driver Relationship Specialty Start Date End Date Cydney Keating MD [address] [place] [id number] PCP - General Internal Medicine 10/19/22
--- OUTSIDE RECORDS SUMMARY | 2024-06-17 13:06 | XMS_ITS | Clinical Summary ---
Author Organization [facility] Address [address] [place] [address]. [place], [place] [id number] [place] [address] Care Team Providers Care Chief Order Dispatcher Name Role Phone Cydney Keating MD Primary Care Provider [phone] Social History Tobacco Use Types Packs/Day Years [...] complete this topic Insurance AETNA Care Teams Chief Order Dispatcher Relationship Specialty Start Date End Date Cydney Keating MD [address] [place] [id number] PCP - General INTERNAL MEDICINE 09/16/21
--- OUTSIDE RECORDS SUMMARY | 2024-06-17 13:06 | XMS_ITS | Clinical Summary ---
Author Organization [facility] Address [address] [place] [address] Care Team Providers Care Embroidery Assistant Name Role Phone Cydney Keating MD Primary Care Provider [phone] Source Comments [facility],non-owned Affiliates and Associated Physician Practices is amultiple site organization consisting of ambulatory clinics and hospital sitesin [place], [place], [place] and [place]. This disclosure is being madepursuant to the Care Everywhere program and may not contain all information available regarding this patient. Last updated 18.[facility] Allergies No known active allergies Medications * [...] age to complete this topic Care Teams Embroidery Assistant Relationship Specialty Start Date End Date Cydney Keating MD [address] [place] [phone] PCP - General Internal Medicine 10/19/22
--- OUTSIDE RECORDS SUMMARY | 2024-06-17 13:06 | XMS_ITS | Patient Health Summary ---
Author Organization [facility] Address [address] [place] [address] Care Team Providers Care Machine Wiper Name Role Phone Cydney Keating MD Primary Care Provider [phone] [facility],non-owned Affiliates and Associated Physician Practices is amultiple site organization consisting of ambulatory clinics and hospital sitesin [place], [place], [place] and [place]. This disclosure is being madepursuant to the Care Everywhere program and may not contain all information available regarding this patient. Last updated 18.[facility] Allergies No known active allergies Medications * [...] results Lui Crump MD [facility] Care Teams Machine Wiper Relationship Specialty Start Date End Date Cydney Keating MD [address] [place] [address] PCP - General Internal Medicine 10/19/22
--- OUTSIDE RECORDS SUMMARY | 2024-06-17 13:06 | XMS_ITS | Referral Summary ---
Author Organization [facility] Address [address] [place] [address] Care Team Providers Care Botany Teacher Name Role Phone Cydney Keating MD Primary Care Provider + [phone] Allergies No known active allergies Medications omeprazole [...] (07/06/2021): Added automatically from request for surgery [id number] Abnormal glucose tolerance test (GTT) 09/28/2013 Overview [...] on file Legal Sex Male 12:44 PM CALENDER TENDER Gender Identity Not on file Sexual Orientation Not on file Last Filed Vital Signs Vital Sign Reading Time Taken Comments Blood Pressure 120/75 04/14/2023 9:17 AM CALENDER TENDER Pulse 53 04/14/2023 9:17 AM CALENDER TENDER Temperature 35.8 ??C (96.5 ??F) 04/14/2023 8:57 AM CS T Respiratory Rate 19 04/14/2023 9:17 AM CALENDER TENDER Oxygen Saturation 98% 04/14/2023 9:17 AM CALENDER TENDER Inhaled Oxygen Concentration - - Weight 106.6 kg (235 lb) 04/14/2023 7:55 AM CALENDER TENDER Height 177.8 cm (5' 10 ) 04/14/2023 7:55 AM CALENDER TENDER Body Mass Index 33.72 04/14/2023 7:55 AM CALENDER TENDER Plan of Treatment Not on file Procedures Procedure Name Priority Date/Time Associated Diagnosis Comments COLONOSCOPY 08/04/2021 9:22 AM CDT from Last 3 Months or Most Recently Relevant to Health Maintenance Results * COLONOSCOPY (08/04/2021 9:22 AM CDT) Anatomical Region Laterality Modality Other Narrative Procedure Note Stephanie Xiong MD - 08/04/2021 9:22 AM CDT [facility] Patient Name: Brock Guerrero Procedure Date: [...] and retrieved. Clip (MRconditional) was placed. Clip gas scrubber operator: Shaker. - One 5 mm polyp in the [...] under direct vision. The Pediatric Colonoscope PCF-H190L [id number] was introducedthrough the anus and advanced to [...] clip was successfully placed (MR conditional). Clip gas scrubber operator: Shaker. There was no bleeding at the end [...] 9:22 AM Procedure Code(s): --- Professional --- 70784, Colonoscopy, flexible; with removal of tumor(s), polyp(s), or other lesion(s) by snare technique Diagnosis Code(s): --- Professional --- Z12.11, Encounter for screening for malignant neoplasm of colon K64.8, Other hemorrhoids D12.0, Benign neoplasm of cecum D12.8, Benign neoplasm of rectum CPT copyright 2020 [employer]. All rights reserved. The codes documented in this report are preliminary and upon machine shorthand reporter reviewmay be revised to meet current compliance requirements. Recognized by the [employer] for promoting quality in endoscopy Stephanie Xiong MD ENDOSCOPY PROCEDURES Final Result from Last 3 Months or Most Recently Relevant to Health Maintenance Insurance T MEDICARE Advance Directives For more information, please contact: [phone] * Full Code (Latest Code Status on File) Date Activated Date Inactivated Comments 04/14/2023 7:38 AM 04/14/2023 1:31 PM * Full Code Date Activated Date Inactivated Comments 03/23/2023 12:30 PM 03/23/2023 7:07 PM * Full Code Date Activated Date Inactivated Comments 03/23/2023 12:30 PM 03/23/2023 12:30 PM * Full Code Date Activated Date Inactivated Comments 08/04/2021 9:20 AM 08/04/2021 4:10 PM Care Teams Botany Teacher Relationship Specialty Start Date End Date Cydney Keating MD [address] [place] [address] PCP - General Internal Medicine 03/07/23
--- OUTSIDE RECORDS SUMMARY | 2024-06-17 13:06 | XMS_ITS | Clinical Summary ---
Author Organization [facility] Medical Office Building [address] Address [address] [place] [address] Care Team Providers Care Bmw Service Technician Name Role Phone Cydney Keating MD Primary Care Provider + [phone] Allergies No known active allergies Medications omeprazole [...] (07/06/2021): Added automatically from request for surgery [id number] Abnormal glucose tolerance test (GTT) 09/28/2013 Overview [...] on file Legal Sex Male 12:44 PM METER CHANGES RECORDS CLERK Gender Identity Not on file Sexual Orientation Not on file Obstetrics History Last Filed Vital Signs Vital Sign Reading Time Taken Comments Blood Pressure 120/75 04/14/2023 9:17 AM METER CHANGES RECORDS CLERK Pulse 53 04/14/2023 9:17 AM METER CHANGES RECORDS CLERK Temperature 35.8 ??C (96.5 ??F) 04/14/2023 8:57 AM CS T Respiratory Rate 19 04/14/2023 9:17 AM METER CHANGES RECORDS CLERK Oxygen Saturation 98% 04/14/2023 9:17 AM METER CHANGES RECORDS CLERK Inhaled Oxygen Concentration - - Weight 106.6 kg (235 lb) 04/14/2023 7:55 AM METER CHANGES RECORDS CLERK Height 177.8 cm (5' 10 ) 04/14/2023 7:55 AM METER CHANGES RECORDS CLERK Body Mass Index 33.72 04/14/2023 7:55 AM METER CHANGES RECORDS CLERK Plan of Treatment Health Maintenance Due Date [...] Male Attending MD: Stephanie Xiong M.D. Room: [facility] ROOM 1 Note Status: Finalized [...] and retrieved. Clip (MRconditional) was placed. Clip aromatherapist: ZipZap. - One 5 mm polyp in the [...] under direct vision. The Pediatric Colonoscope PCF-H190L [id number] was introducedthrough the anus and advanced to [...] clip was successfully placed (MR conditional). Clip aromatherapist: [employer]ap. There was no bleeding at the end [...] 9:22 AM Procedure Code(s): --- Professional --- 65978, Colonoscopy, flexible; with removal of tumor(s), polyp(s), or other lesion(s) by snare technique Diagnosis Code(s): --- Professional --- Z12.11, Encounter for screening for malignant neoplasm of colon K64.8, Other hemorrhoids D12.0, Benign neoplasm of cecum D12.8, Benign neoplasm of rectum CPT copyright 2020 [employer]. All rights reserved. The codes documented in this report are preliminary and upon barrel assembler reviewmay be revised to meet current compliance requirements. Recognized by the [employer] for promoting quality in endoscopy Stephanie Xiong MD ENDOSCOPY PROCEDURES Final Result from Last 3 Months or Most Recently Relevant to Health Maintenance Insurance AETNA MEDICARE AETNA MEDICARE Advance Directives For more information, please contact: [phone] * Full Code (Latest Code Status on File) Date Activated Date Inactivated Comments 04/14/2023 7:38 AM 04/14/2023 1:31 PM * Full Code Date Activated Date Inactivated Comments 03/23/2023 12:30 PM 03/23/2023 7:07 PM * Full Code Date Activated Date Inactivated Comments 03/23/2023 12:30 PM 03/23/2023 12:30 PM * Full Code Date Activated Date Inactivated Comments 08/04/2021 9:20 AM 08/04/2021 4:10 PM Care Teams Bmw Service Technician Relationship Specialty Start Date End Date Cydney Keating MD [address] [place] [address] PCP - General Internal Medicine 03/07/23
--- OUTSIDE RECORDS SUMMARY | 2024-06-17 13:06 | XMS_ITS | Continuity of Care Document ---
Author Organization [facility] Address [address] [place] [address] [place] [address] Phone Care Team Providers Care Grades 1 Thru 6 Visiting Teacher Name Role Phone Preston Hunt DO Unavailable Unavailable Advance Directives Directive Yes / No Effective Date File Name No Information Encounters Encounter Description Practice Location Reason(s) For Visit Diagnoses Date Provider Providers Copied on Encounter [facility], [address], [place], [place], [id number], tel:[phone] [facility] No Information Gilbert Jaramillo. [address] [place], [address], [place]. tel: [phone] Family History Family Member Type Diagnosis Age At Onset No Information Payers Payer name Insurance type Covered constitution party ID Authoriza tion(s) No Information Social History [...]
== END 2024-06-17 11:59 | disposition home or self-care (01) ==
PROVIDERS: PCP Internal Medicine; Visit Provider Internal Medicine
DX: R05.9 Cough, unspecified (principal); R91.8 Other nonspecific abnormal finding of lung field; J44.1 Chronic obstructive pulmonary disease with (acute) exacerbation; R06.00 Dyspnea, unspecified
CPT/HCPCS: 36415; 71250; 83880; 85380